=== PATIENT | male | born 1965 | race African-American/Black ===

== ENCOUNTER 2018-11-15 10:04 | Emergency (ER) | payer OTHER ==
[~2018-11-15] VITALS: Ht 175.3 cm; Wt 122.5 kg
--- NOTE | 2018-11-15 10:05 | NUR ---
YANCI GASPAR, CURRENTLY AWAITING BED
[2018-11-15 10:35] VITALS: BP 185/112
--- NOTE | 2018-11-15 10:35 | NUR ---
PT TAKEN TO BED 8 VIA WHEELCHAIR
--- NOTE | 2018-11-15 10:59 | NUR ---
BIB [facility] WITH C/O WORSENING RT ANKLE PAIN PER PT D/T GOUT. PATIENT STATES PAIN OF 10/10 AT THIS TIME; VSS; PATIENT POSITIONED FOR COMFORT; HOB ELEVATED; BEDRAILS UP X1; BED DOWN. ER MD MADE AWARE OF PT STATUS.
[2018-11-15] MEDS ORDERED: DEXAMETHASONE 10 MG/ML VIAL IM ONE (11:20)
[2018-11-15] MEDS ORDERED: KETOROLAC 60 MG/2 ML VIAL IM ONE (11:20)
[2018-11-15 12:15] VITALS: BP 162/92
--- NOTE | 2018-11-15 12:15 | NUR ---
Patient discharged with v/s stable. Written and verbal after care instructions given and explained. Patient alert, oriented and verbalized understanding of instructions. Wheel Chair Assisted to WAITING ROOM TO WAIT FOR SISTER. All questions addressed prior to discharge. ID band removed. Patient advised to follow up with PMD. Rx of COLCHICINE, INDOMETHACINE, AND ALLOPURINOL given. Patient educated on indication of medication including possible reaction and side effects. Opportunity to ask questions provided and answered.
== END 2018-11-15 12:15 | disposition home or self-care (01) ==
LOC: MED 10:04
DX: M10.9 Gout, unspecified (principal); I10 Essential (primary) hypertension; F17.200 Nicotine dependence, unspecified, uncomplicated
CPT/HCPCS: 29515; 96372; 99283; J1100; J1885